=== PATIENT | female | born 1955 | race Caucasian/White ===

== ENCOUNTER 2020-07-29 19:12 | Emergency (ER) | payer OTHER ==
[~2020-07-29] VITALS: Ht 175.3 cm; Wt 98.9 kg
[2020-07-29 19:43] LABS: ABSOLUTE BASOPHILS 0.1 thou/uL (0.0-0.2); ABSOLUTE EOSINOPHILS 0.2 thou/uL (0.0-0.7); ABSOLUTE LYMPHOCYTES 2.6 thou/uL (0.8-5.3); ABSOLUTE MONOCYTES 1.1 thou/uL (0.0-1.2); ABSOLUTE NEUTROPHILS 10.3 thou/uL (1.6-8.1); EOSINOPHILS 1.3 %; HEMATOCRIT 42.2 % (37.0-47.0); HEMOGLOBIN 14.6 gm/dL (12.0-15.0); LYMPHOCYTES 18.3 %; MCH 30.9 pg (26.0-34.0); MCHC 34.6 g/dL (28.0-37.0); MCV 89.4 fL (80.0-100.0); MONOCYTES 7.5 %; NUCLEATED RBCS 0 /100WBC; PLATELET COUNT* 376 thou/uL (150-400); POLYS 71.9 %; RBC 4.72 mil/uL (4.20-5.00); RDW-CV 13.6 % (10.5-14.5); WBC 14.3 thou/uL (4.0-11.0)
[2020-07-29 19:51] LABS: CALCIUM 10.5 mg/dL (8.5-10.1); CREATININE 1.5 mg/dL (0.6-1.3); POTASSIUM 4.2 mmol/L (3.5-5.1)
[2020-07-29 19:55] LABS: ALBUMIN 3.6 g/dL (3.4-5.0); TOTAL BILIRUBIN 0.2 mg/dL (<0.1-1.0); TOTAL PROTEIN 7.9 g/dL (6.4-8.2)
[2020-07-29 20:39] LABS: URINE BILIRUBIN NEGATIVE (Negative); URINE BLOOD NEGATIVE (Negative); URINE CLARITY CLEAR; URINE COLOR YELLOW; URINE GLUCOSE-RANDOM NEGATIVE (Negative); URINE KETONES NEGATIVE (Negative); URINE LEUKOCYTES-REFLEX NEGATIVE (Negative); URINE NITRITE-REFLEX NEGATIVE (Negative); URINE PROTEIN 1+ (Negative); URINE UROBILINOGEN 0.2 E.U./dl (0.2-1.0)
[2020-07-29 21:15] LABS: AMP/METHAMP Negative (Negative); BARBITURATES Negative (Negative); BENZODIAZEPINES Negative (Negative); COCAINE Negative (Negative); METHADONE Negative (Negative); OPIATES Negative (Negative); PCP Negative (Negative); THC POSITIVE (Negative)
[2020-07-29 22:31] VITALS: BP 108/74
--- NOTE | 2020-07-30 14:58 | EKG ---
[place] [address] ELECTROCARDIOGRAM REPORT Name: NILDAABDELRAHMAN SUDEEP Room: [facility]#: [id number] Admission: 07/29/20 Attend Phys: Discharge: 07/29/20 Date of : 57 Date of Service: 07/29/201921 Report #: [id number] THIS REPORT FOR: //name// [facility] ED Test Date: 2020-07-29 Test Time: 19:22:23 Pat Name: ABDELRAHMAN MUNGUIA Department: Room: Gender: F Manufacturer'S Representative: : [id number] Requested By: Tatum Cooper Order Number: [id number] MD: Raghav Benson Measurements Intervals Adams Rate: 77 P: 91 WI: 170 QRS: 67 QRSD: 92 T: 30 QT: 369 QTc: 418 Interpretive Statements Sinus rhythm Baseline wander in lead(s) V5 No previous ECG available for comparison Electronically Signed On 07-30-2020 14:58:22 CDT by Raghav Benson [email or web address] <ELECTRONICALLY SIGNED> By: Raghav Benson MD, [facility] 07/30/20 1458 21 21 Raghav Benson MD, [facility] /EPI
== END 2020-07-29 22:32 | disposition home or self-care (01) ==
LOC: M.ERS 19:12
PROVIDERS: Emergency Medicine
DX: E87.1 Hypo-osmolality and hyponatremia (principal); F12.90 Cannabis use, unspecified, uncomplicated; F17.210 Nicotine dependence, cigarettes, uncomplicated; I10 Essential (primary) hypertension; J45.909 Unspecified asthma, uncomplicated; E78.00 Pure hypercholesterolemia, unspecified